=== PATIENT | male | born 1980 | race Caucasian/White ===

== ENCOUNTER 2022-05-25 09:52 | Outpatient (REF) | payer OTHER, SELFPAY ==
[2022-05-25 15:54] LABS: CT PCR NOT DETECTED (Not Detect.); NG PCR DETECTED (Not Detect.)
== END 2022-05-25 09:53 | disposition home or self-care (01) ==
LOC: HO.LAB 09:52
PROVIDERS: Visit Provider Family Medicine
DX: Z20.2 Contact with and (suspected) exposure to infections with a predominantly sexual mode of transmission (principal)
CPT/HCPCS: 0353U